=== PATIENT | male | born 1975 | race Caucasian/White ===

== ENCOUNTER 2018-01-02 19:47 | Emergency (ER) | payer OTHER ==
--- NOTE | 2018-01-02 19:57 | PDOC ---
Rapid Medical Evaluation Time Seen by Provider: 01/02/18 19:53 Medical Evaluation: Allergies Allergy/AdvReac Type Severity Reaction Status Date / Time No Known Allergies Allergy Verified 08/14/15 19:22 01/02/18 19:53 I have performed a brief in-person evaluation of this patient. The patient presents with a chief complaint of: R knee injury after slamming R knee against knee against dashboard of car, no collision/accident Pertinent physical exam findings:No joint swelling/deformity, bearing weight I have ordered the following:nothing The patient will proceed to the ED for further evaluation. Discharge Disposition - Diagnosis Knee contusion Qualifiers: Encounter type: initial encounter Laterality: right Qualified Code(s): S80.01XA - Contusion of right knee, initial encounter - Referrals - Patient Instructions - Post Discharge Activity
[2018-01-02 20:02] VITALS: BP 146/98; PULSE 88; TEMP 98.1; BMI 26.9
--- NOTE | 2018-01-02 20:05 | PDOC ---
History of Present Illness - General Chief Complaint: Pain, Acute Stated Complaint: KNEE INJURY ([facility]) Time Seen by Provider: 01/02/18 19:53 Past History - Past Medical History Allergies/Adverse Reactions: Allergies Allergy/AdvReac Type Severity Reaction Status Date / Time No Known Allergies Allergy Verified 08/14/15 19:22 Home Medications: Ambulatory Orders Naproxen [Naprosyn -] 500 mg PO BID PRN #14 tablet 08/14/15 - Immunization History Immunization Up to Date: Yes - Suicide/Smoking/Psychosocial Hx Smoking Status: No Smoking History: Never smoked Number of Cigarettes Smoked Daily: 0 Hx Alcohol Use: No Drug/Substance Use Hx: No Medical Decision Making - Medical Decision Making 01/02/18 19:58 42 yo M, n/o congenial kidney disease and shceudled for surgfery in 2 days, here w/ R knee pain afte hitting knee against dashboard *DC/Admit/Observation/Transfer Diagnosis at time of Disposition: Knee contusion Qualifiers: Encounter type: initial encounter Laterality: right Qualified Code(s): S80.01XA - Contusion of right knee, initial encounter - Discharge Dispostion Disposition: HOME Condition at time of disposition: Good - Referrals - Patient Instructions Printed Discharge Instructions: Contusion Additional Instructions: Discuss pain control as needed with your PMD - Post Discharge Activity Forms/Work/School Notes: Back to Work
--- NOTE | 2018-01-02 20:10 | PDOC ---
History of Present Illness - General Chief Complaint: Pain, Acute Stated Complaint: KNEE INJURY ([facility]) Time Seen by Provider: 01/02/18 19:53 History Source: Patient - History of Present Illness Occurred: reports: just prior to arrival Lower Extremity Pain Location: right: knee Method of Injury: Yes: direct blow Past History - Past Medical History Allergies/Adverse Reactions: Allergies Allergy/AdvReac Type Severity Reaction Status Date / Time No Known Allergies Allergy Verified 01/02/18 20:02 Home Medications: Ambulatory Orders Naproxen [Naprosyn -] 500 mg PO BID PRN #14 tablet 08/14/15 COPD: No - Immunization History Immunization Up to Date: Yes - Suicide/Smoking/Psychosocial Hx Smoking Status: No Smoking History: Never smoked Have you smoked in the past 12 months: No Number of Cigarettes Smoked Daily: 0 Information on smoking cessation initiated: No Hx Alcohol Use: No Drug/Substance Use Hx: No Substance Use Type: None Review of Systems - Review of Systems Musculoskeletal: Yes: Joint Pain. No: Joint Swelling *Physical Exam - Vital Signs Last Vital Signs Temp Pulse Resp BP Pulse Ox 98.1 F 88 18 146/98 100 01/02/18 19:54 01/02/18 19:54 01/02/18 19:54 01/02/18 19:54 01/02/18 19:54 - Physical Exam General Appearance: Yes: Appropriately Dressed. No: Apparent Distress HEENT: positive: Normal Voice Neck: positive: Supple Extremity: positive: Normal Inspection. negative: Tender, Swelling Integumentary: positive: Dry, Warm Neurologic: positive: Fully Oriented, Alert, Normal Mood/Affect Medical Decision Making - Medical Decision Making 01/02/18 20:06 42 yo M, h/o congenital kidney disease, scheduled for renal surgery in 2 days, works as [employer] and here w/ R knee pain s/p banging knee against dashboard while at a work tonight. Able to bear weight See exam R knee contusion No e/o serious injury -dc w/ pain control as needed -ortho f/u as needed *DC/Admit/Observation/Transfer Diagnosis at time of Disposition: Knee contusion Qualifiers: Encounter type: initial encounter Laterality: right Qualified Code(s): S80.01XA - Contusion of right knee, initial encounter - Discharge Dispostion Disposition: HOME Condition at time of disposition: Good - Referrals - Patient Instructions Printed Discharge Instructions: Contusion Additional Instructions: Discuss pain control as needed with your PMD - Post Discharge Activity Forms/Work/School Notes: Back to Work
== END 2018-01-02 20:36 | disposition home or self-care (01) ==
LOC: JERFT 19:47
DX: S80.01XA Contusion of right knee, initial encounter (principal); V88.8XXA Person injured in other specified noncollision transport accidents involving motor vehicle, nontraffic, initial encounter; Y92.488 Other paved roadways as the place of occurrence of the external cause; Y93.89 Activity, other specified; Y99.0 Civilian activity done for income or pay
CPT/HCPCS: 99281-25